=== PATIENT | female | born 1985 | race African-American/Black ===

== ENCOUNTER 2017-06-28 10:37 | Emergency (ER) | payer OTHER ==
[~2017-06-28] VITALS: Ht 167.6 cm; Wt 73.9 kg
[~2017-06-28 10:37] MED LIST: HYDROCHLOROTHIA25 MG PO; MOBIC PO; NAPROSYN500 MG PO; PROLIXIN10 MG PO; VALTREX PO; VICODIN 5/500 T1 TAB PO; VOLTAREN75 MG PO
== END 2017-06-28 12:45 | disposition left against medical advice (07) ==
LOC: CED 10:37 → CFTX 10:37 → CED 12:00
DX: Z53.21 Procedure and treatment not carried out due to patient leaving prior to being seen by health care provider (principal)